=== PATIENT | male | born 1950 | race Caucasian/White ===

== ENCOUNTER 2021-04-30 14:01 | Inpatient (IN) | payer MEDICARE, OTHER ==
[~2021-04-30 14:01] MED LIST: Iopamidol-370 76% 500 ML 1 ML ONE
[2021-04-30] MEDS ORDERED: Albuterol Sulfate 1.25 MG/3 ML NEB ONE (14:28)
[2021-04-30 14:37] LABS: #Eosinphils 0.1 thou/uL (0.0-0.7); #Lymphocytes 0.9 thou/uL (1.20-3.40); #Monocytes 0.8 thou/uL (0.11-0.59); #Neutrophils 3.5 thou/uL (1.40-6.50); %Basophils 0.9 % (0.0-1.0); %Eosinophils 2.2 % (0.0-10.0); %Lymphocytes 17.4 % (21.0-51.0); %Monocytes 14.3 % (0.0-10.0); %Neutrophils 65.2 % (42.0-75.0); Hemoglobin 12.4 g/dL (14.0-18.0); Mean Corpuscular HGB CONC 34.2 g/dL (32.0-36.0); Mean Platelet Volume 7.5 fL (7.4-10.4); Platelet Count 202 thou/uL (130-400); RBC Distribution Width 12.3 % (11.5-14.5); Red Blood Cell (RBC) Count 3.53 mill/uL (4.70-6.10); White Blood Cell (WBC) Count 5.3 thou/uL (4.8-10.8)
[2021-04-30 14:48] LABS: INR-International Normal Ratio 1.1; PTT 30.8 sec (22.9-36.1); Prothrombin Time 13.9 sec (12.0-14.7)
[2021-04-30 14:58] LABS: ALT (SGPT) 207 U/L (8-55); AST (SGOT) 119 U/L (5-34); Albumin 3.8 g/dL (3.4-4.8); Alkaline Phosphatase 169 U/L (40-110); Anion Gap 15 mmol/L (10-20); BUN (Urea Nitrogen) 29 mg/dL (8.4-25.7); Bilirubin, Total 0.3 mg/dL (0.2-1.2); Calc. Creatinine Clearance 0 mL/min (70-130); Calcium 9.1 mg/dL (7.8-10.44); Carbon Dioxide 20 mmol/L (23-31); Chloride 106 mmol/L (98-107); Globulin 2.9 g/dL (2.4-3.5); Glucose 124 mg/dL (83-110); Potassium 4.6 mmol/L (3.5-5.1); Protein, Total 6.7 g/dL (5.8-8.1); Sodium 136 mmol/L (136-145)
[2021-04-30 16:37] LABS: SARS-CoV-2 NAA Rapid Test DETECTED (NotDetected)
[2021-04-30] MEDS ORDERED: methylPREDNISolone Sod Succ/PF 125 MG/2 ML VIAL ONE (16:39)
[2021-04-30 18:07] LABS: Bacteria/HPF None Seen HPF (None Seen); Bilirubin Negative (Negative); Blood, Urine Trace (Negative); Clarity Clear (Clear); Glucose, Urine (Dipstick) Normal (Negative); Ketone, Urine Negative (Negative); Leukocyte 25 Leu/uL (Negative); Nitrite Negative (Negative); Protein, Urine (Dipstick) 10 mg/dL (Neg-Trace); Specific Gravity, Urine 1.015 (1.002-1.036); Squamous Epithelial None Seen HPF (0-3); Urobilinogen Normal mg/dL (Less than 2)
[2021-04-30 18:39] LABS: Troponin I 0.409 ng/mL (< 0.028)
[2021-04-30] MEDS ORDERED: Acetaminophen 325 MG TAB PO PRN (19:16)
[2021-04-30] MEDS ORDERED: Senokot S 8.6-50 MG TAB PO PRN (19:16)
[2021-04-30] MEDS ORDERED: Calcium Carbonate 500 MG ChewTAB PO PRN (19:16)
[2021-04-30] MEDS ORDERED: Ipratropium/Albuterol Sulfate 4 GM AER IH PRN (19:35)
[2021-04-30] MEDS ORDERED: Enoxaparin Sodium 40 MG/0.4 ML SYRINGE SC SCH (20:00)
[2021-04-30] MEDS ORDERED: Enoxaparin Sodium 40 MG/0.4 ML SYRINGE ONE (20:32)
[2021-04-30] MEDS ORDERED: Aspirin 325 MG TAB PO SCH (21:00)
[2021-04-30 21:27] LABS: Critical Call Chem Troponin I RESULT DECREASING; Troponin I 0.323 ng/mL (< 0.028)
[2021-05-01] MEDS ORDERED: Ipratropium/Albuterol Sulfate 4 GM AER IH SCH (01:00)
[2021-05-01 01:47] LABS: Troponin I 0.194 ng/mL (< 0.028)
[2021-05-01 01:53] VITALS: BMI 30.2
[2021-05-01] MEDS ORDERED: Albuterol 200 PUFF (6.7GM INHALER) INH PRN (02:35)
[2021-05-01] MEDS ORDERED: Ipratropium Oral Inhaler INH PRN (02:35)
[2021-05-01] MEDS: Albuterol 200 PUFF (6.7GM INHALER) INH SCH ×4 (03:03→19:24)
[2021-05-01] MEDS: Ipratropium Oral Inhaler INH SCH ×4 (03:04→19:25)
[2021-05-01 06:01] LABS: ALT (SGPT) 171 U/L (8-55); AST (SGOT) 70 U/L (5-34); Albumin 3.6 g/dL (3.4-4.8); Alkaline Phosphatase 148 U/L (40-110); Anion Gap 15 mmol/L (10-20); BUN (Urea Nitrogen) 32 mg/dL (8.4-25.7); Bilirubin, Total 0.3 mg/dL (0.2-1.2); Calc. Creatinine Clearance 64 mL/min (70-130); Carbon Dioxide 19 mmol/L (23-31); Chloride 107 mmol/L (98-107); Globulin 2.8 g/dL (2.4-3.5); Glucose 172 mg/dL (83-110); Potassium 4.7 mmol/L (3.5-5.1); Protein, Total 6.4 g/dL (5.8-8.1); Sodium 136 mmol/L (136-145)
[2021-05-01] MEDS: Dexamethasone 4 MG TAB PO SCH (08:12)
[2021-05-01] MEDS: Enoxaparin Sodium 40 MG/0.4 ML SYRINGE SC SCH (08:13)
[2021-05-01] MEDS: Aspirin 325 mg Enteric Coated Tablet PO SCH (08:13)
[2021-05-02] MEDS: Albuterol 200 PUFF (6.7GM INHALER) INH SCH ×6 (00:17→20:42)
[2021-05-02] MEDS: Ipratropium Oral Inhaler INH SCH ×6 (00:17→20:42)
[2021-05-02] MEDS: Lisinopril/Hydrochlorothiazide 20/25 mg Tablet PO SCH (06:19)
[2021-05-02] MEDS: Aspirin 325 mg Enteric Coated Tablet PO SCH (08:34)
[2021-05-02] MEDS: Dexamethasone 4 MG TAB PO SCH (08:34)
[2021-05-02] MEDS: Enoxaparin Sodium 40 MG/0.4 ML SYRINGE SC SCH (08:34)
[2021-05-02] MEDS: Allopurinol 300 MG TAB PO SCH (08:34)
[2021-05-02] MEDS: guaiFENesin ER 600 MG TAB PO SCH ×2 (10:46→20:42)
[2021-05-02] MEDS: Atorvastatin Calcium 20 MG TAB PO SCH (20:42)
[2021-05-03] MEDS: Albuterol 200 PUFF (6.7GM INHALER) INH SCH ×6 (02:50→21:58)
[2021-05-03] MEDS: Ipratropium Oral Inhaler INH SCH ×6 (02:50→21:58)
[2021-05-03 07:18] LABS: Anion Gap 13 mmol/L (10-20); BUN (Urea Nitrogen) 38 mg/dL (8.4-25.7); Calc. Creatinine Clearance 83 mL/min (70-130); Calcium 9.2 mg/dL (7.8-10.44); Carbon Dioxide 23 mmol/L (23-31); Chloride 104 mmol/L (98-107); Glucose 100 mg/dL (83-110); Potassium 4.7 mmol/L (3.5-5.1); Sodium 135 mmol/L (136-145)
[2021-05-03] MEDS: Aspirin 325 mg Enteric Coated Tablet PO SCH (07:42)
[2021-05-03] MEDS: Allopurinol 300 MG TAB PO SCH (07:42)
[2021-05-03] MEDS: guaiFENesin ER 600 MG TAB PO SCH ×2 (07:42→21:57)
[2021-05-03] MEDS: Lisinopril/Hydrochlorothiazide 20/25 mg Tablet PO SCH (07:42)
[2021-05-03] MEDS: Dexamethasone 4 MG TAB PO SCH (07:43)
[2021-05-03] MEDS: Enoxaparin Sodium 40 MG/0.4 ML SYRINGE SC SCH (07:43)
[2021-05-03] MEDS: Famotidine 20 MG TAB PO SCH ×2 (10:40→21:57)
[2021-05-03] MEDS: Atorvastatin Calcium 20 MG TAB PO SCH (21:58)
[2021-05-04] MEDS: Albuterol 200 PUFF (6.7GM INHALER) INH SCH ×6 (02:45→20:21)
[2021-05-04] MEDS: Ipratropium Oral Inhaler INH SCH ×6 (02:45→20:21)
[2021-05-04 05:13] LABS: Anion Gap 13 mmol/L (10-20); BUN (Urea Nitrogen) 41 mg/dL (8.4-25.7); Calc. Creatinine Clearance 80 mL/min (70-130); Calcium 9.1 mg/dL (7.8-10.44); Carbon Dioxide 23 mmol/L (23-31); Chloride 102 mmol/L (98-107); Glucose 106 mg/dL (83-110); Potassium 4.3 mmol/L (3.5-5.1); Sodium 134 mmol/L (136-145)
[2021-05-04] MEDS: Famotidine 20 MG TAB PO SCH ×2 (09:34→20:22)
[2021-05-04] MEDS: Lisinopril/Hydrochlorothiazide 20/25 mg Tablet PO SCH (09:34)
[2021-05-04] MEDS: Dexamethasone 4 MG TAB PO SCH (09:34)
[2021-05-04] MEDS: Aspirin 325 mg Enteric Coated Tablet PO SCH (09:34)
[2021-05-04] MEDS: Enoxaparin Sodium 40 MG/0.4 ML SYRINGE SC SCH (09:35)
[2021-05-04] MEDS: Allopurinol 300 MG TAB PO SCH (09:35)
[2021-05-04] MEDS: guaiFENesin ER 600 MG TAB PO SCH ×2 (09:35→20:22)
[2021-05-04] MEDS: Atorvastatin Calcium 20 MG TAB PO SCH (20:22)
[2021-05-05] MEDS: Albuterol 200 PUFF (6.7GM INHALER) INH SCH ×4 (02:12→15:33)
[2021-05-05] MEDS: Ipratropium Oral Inhaler INH SCH ×4 (02:12→15:32)
[2021-05-05] MEDS: Dexamethasone 4 MG TAB PO SCH (08:39)
[2021-05-05] MEDS: Aspirin 325 mg Enteric Coated Tablet PO SCH (08:40)
[2021-05-05] MEDS: Famotidine 20 MG TAB PO SCH (08:40)
[2021-05-05] MEDS: Enoxaparin Sodium 40 MG/0.4 ML SYRINGE SC SCH (08:40)
[2021-05-05] MEDS: guaiFENesin ER 600 MG TAB PO SCH (08:40)
[2021-05-05] MEDS: Allopurinol 300 MG TAB PO SCH (08:40)
[2021-05-05] MEDS ORDERED: Lisinopril 20 MG TAB PO SCH (09:00)
[2021-05-05 12:28] VITALS: BP 113/67; TEMP 97.7
== END 2021-05-05 16:45 | disposition home or self-care (01) | DRG 871 ==
LOC: ERS 14:01 → ERHOLD 17:37 → 2SW 05-01 00:26 → OBSVTOIN 05-02 09:36
PROVIDERS: ADMIT Student in an Organized Health Care Education/Training Program; ATTEND Student in an Organized Health Care Education/Training Program
PROC: 8E0ZXY6 Isolation (ICD-10-PCS; principal; 2021-05-02)
DX: A41.89 Other specified sepsis (principal); U07.1 COVID-19; N17.9 Acute kidney failure, unspecified; I24.8 Other forms of acute ischemic heart disease; J90 Pleural effusion, not elsewhere classified; R65.20 Severe sepsis without septic shock; I10 Essential (primary) hypertension; E86.0 Dehydration; R94.31 Abnormal electrocardiogram [ECG] [EKG]; E78.5 Hyperlipidemia, unspecified; R74.01 Elevation of levels of liver transaminase levels; Z96.653 Presence of artificial knee joint, bilateral; Z79.899 Other long term (current) drug therapy; Z90.89 Acquired absence of other organs; Z98.42 Cataract extraction status, left eye; Z98.41 Cataract extraction status, right eye; Z87.891 Personal history of nicotine dependence
CPT/HCPCS: 0240U; 36415; 71045; 71275; 80048; 80053; 81003; 81015; 83605; 84484; 85025; 85610; 85730; 87040; 87086; 93005; 94760; 96372; 96374; G0378; J1650; J2930; J7620; J8540; Q9967

== ENCOUNTER 2021-06-06 13:57 | Inpatient (IN) | payer MEDICARE, OTHER ==
[2021-06-06] MEDS ORDERED: Vancomycin 1 GM/200 ML BAG ONE (15:03)
[2021-06-06] MEDS ORDERED: Cefepime 2 GM VIAL ONE (15:03)
[2021-06-06 15:26] LABS: ALT (SGPT) 118 U/L (8-55); AST (SGOT) 153 U/L (5-34); Albumin 2.9 g/dL (3.4-4.8); Alkaline Phosphatase 188 U/L (40-110); Anion Gap 21 mmol/L (10-20); BUN (Urea Nitrogen) 110 mg/dL (8.4-25.7); Bilirubin, Total 0.8 mg/dL (0.2-1.2); Calc. Creatinine Clearance 0 mL/min (70-130); Calcium 8.9 mg/dL (7.8-10.44); Carbon Dioxide 11 mmol/L (23-31); Chloride 104 mmol/L (98-107); Glucose 78 mg/dL (83-110); Magnesium 2.3 mg/dL (1.6-2.6); Potassium 5.3 mmol/L (3.5-5.1); Protein, Total 5.9 g/dL (5.8-8.1); Sodium 131 mmol/L (136-145)
[2021-06-06 15:27] LABS: Hemoglobin 12.1 g/dL (14.0-18.0); Mean Corpuscular HGB CONC 33.1 g/dL (32.0-36.0); Mean Corpuscular Hemoglobin 33.3 pg (27.0-31.0); Platelet Count 237 thou/uL (130-400); RBC Distribution Width 13.2 % (11.5-14.5); Red Blood Cell (RBC) Count 3.63 mill/uL (4.70-6.10); White Blood Cell (WBC) Count 24.1 thou/uL (4.8-10.8)
[2021-06-06] MEDS ORDERED: Norepinephrine 8 MG/0.9% NS 250 ML ONE (15:40)
[2021-06-06 15:41] LABS: INR-International Normal Ratio 1.9; PTT 29.2 sec (22.9-36.1); Prothrombin Time 21.7 sec (12.0-14.7)
[2021-06-06 15:44] LABS: Band 32 % (5-11); Burr Cells SLIGHT = 2-5 cells (100X) (0-1/hpf); Lymphocytes 7 % (21-51); MDiff Complete? YES; Macrocytosis SLIGHT = 6-15 cells (100X) (0-5/hpf); Metamyelocyte 3 % (0-0); Monocytes 2 % (0-10); Neutrophil 56 % (42-75); Platelet Morphology Comment Appears Adequate; Polychromasia SLIGHT = 2-3 cells (100X) (0-2/hpf); Vacuoles SLIGHT
[2021-06-06 15:57] LABS: Bilirubin Negative (Negative); Blood, Urine 2+ (Negative); Clarity Turbid (Clear); Glucose, Urine (Dipstick) Normal (Negative); Ketone, Urine Negative (Negative); Leukocyte 500 Leu/uL (Negative); Nitrite Negative (Negative); Protein, Urine (Dipstick) 50 mg/dL (Neg-Trace); Specific Gravity, Urine 1.023 (1.002-1.036); Squamous Epithelial 0-3 HPF (0-3); Urobilinogen Normal mg/dL (Less than 2)
[2021-06-06 16:06] LABS: Bacteria/HPF 2+ HPF (None Seen)
[2021-06-06 16:33] LABS: CKMB 154.1 ng/mL (0-6.6)
[2021-06-06] MEDS ORDERED: Phenylephrine 40 MG in Sodium Chloride 0.9% 250 ML 250 ML IVPB SCH (17:15)
[2021-06-06] MEDS ORDERED: Heparin 25,000 units/D5W 500 ML ONE (17:19)
[2021-06-06] MEDS ORDERED: Heparin 10,000 UNITS/ 10 ML VIAL ONE (17:19)
[2021-06-06 18:16] LABS: Lactic Acid 2.4 mmol/L (0.5-2.2)
[2021-06-06 18:19] LABS: SARS-CoV-2 NAA Rapid Test DETECTED (NotDetected)
[2021-06-06] MEDS ORDERED: Electrolyte Replacement Protocol 1 EACH IVPB ONE (18:58)
[2021-06-06] MEDS ORDERED: Phenylephrine 40 MG in Sodium Chloride 0.9% 250 ML 250 ML IVPB PRN (18:58)
[2021-06-06] MEDS ORDERED: Acetaminophen 325 MG TAB PO PRN (18:58)
[2021-06-06] MEDS ORDERED: Ondansetron ODT 4 MG TAB SL PRN (19:15)
[2021-06-06] MEDS ORDERED: Ondansetron PF 4 MG/2 ML Vial IVP PRN (19:15)
[2021-06-06] MEDS ORDERED: Hydrocortisone Sod Succ/PF 100 mg/2 ml Vial IVP SCH (19:15)
[2021-06-06] MEDS ORDERED: Lactated Ringer's 1,000 ML IV SCH (19:15)
[2021-06-06] MEDS ORDERED: Pharmacy to RENALLY ADJUST CEFEPIME IVPB PRN (19:40)
[2021-06-06 19:56] LABS: Critical Call Chem Troponin I RESULT DECREASING; Troponin I 13.131 ng/mL (< 0.028)
[2021-06-06] MEDS: Famotidine/PF 20 mg/2ml Vial SLOW IVP SCH (20:58)
[2021-06-06 22:28] LABS: O2 Tension (PaO2), arterial 108.2 mmHg (> 70.0); Potassium - ABG Lab 5.02 mmol/L (3.70-5.30); pH, Arterial 7.28 (7.35-7.45)
[2021-06-06 22:29] LABS: CO2 Tension 17.4 mmHg (35.0-45.0)
[2021-06-06 22:30] LABS: Puncture Site LRA
[2021-06-06] MEDS ORDERED: Sodium Bicarb 50 MEQ/50 ML VIAL IVP SCH (22:30)
[2021-06-06] MEDS ORDERED: Sodium Bicarb 50 MEQ/50 ML VIAL ONE (22:34)
[2021-06-06] MEDS ORDERED: Sodium Bicarbonate 150 MEQ in Dextrose 5% in Water 1,000 ML IV SCH (22:45)
[2021-06-06] MEDS: Phenylephrine 40 MG in Sodium Chloride 0.9% 250 ML 250 ML IVPB PRN (22:47)
[2021-06-06] MEDS ORDERED: Furosemide 40 MG/4 ML VIAL SLOW IVP SCH (23:30)
[2021-06-06] MEDS ORDERED: Meropenem 1 GM in Sodium Chloride 0.9% 100 ML IVPB SCH ×2 (23:45→23:59)
[2021-06-06] MEDS ORDERED: Heparin 25,000 units/D5W 500 ML IVPB SCH (23:45)
[2021-06-06] MEDS ORDERED: Insulin Regular 300 UNITS/3 ML VIAL SC PRN (23:52)
[2021-06-07 00:05] LABS: ALT (SGPT) 134 U/L (8-55); AST (SGOT) 144 U/L (5-34); Albumin 2.7 g/dL (3.4-4.8); Alkaline Phosphatase 200 U/L (40-110); Anion Gap 22 mmol/L (10-20); BUN (Urea Nitrogen) 111 mg/dL (8.4-25.7); Bilirubin, Total 0.9 mg/dL (0.2-1.2); Calc. Creatinine Clearance 0 mL/min (70-130); Calcium 8.4 mg/dL (7.8-10.44); Carbon Dioxide 11 mmol/L (23-31); Chloride 107 mmol/L (98-107); Glucose 111 mg/dL (83-110); Potassium 5.2 mmol/L (3.5-5.1); Protein, Total 5.7 g/dL (5.8-8.1); Sodium 135 mmol/L (136-145)
[2021-06-07 00:09] LABS: Critical Call Chem Troponin I RESULT DECREASING; Troponin I 12.181 ng/mL (< 0.028)
[2021-06-07 00:10] LABS: Band 39 % (5-11); Hemoglobin 13.2 g/dL (14.0-18.0); Hypochromia SLIGHT = 6-15 cells (100X) (0-5/hpf); MDiff Complete? YES; Macrocytosis SLIGHT = 6-15 cells (100X) (0-5/hpf); Mean Corpuscular Hemoglobin 32.7 pg (27.0-31.0); Mean Platelet Volume 7.5 fL (7.4-10.4); Monocytes 12 % (0-10); Neutrophil 48 % (42-75); Platelet Count 332 thou/uL (130-400); Platelet Morphology Comment Appears Adequate; RBC Distribution Width 13.5 % (11.5-14.5); Reactive Lymphocytes 1 % (0-10); Red Blood Cell (RBC) Count 4.05 mill/uL (4.70-6.10); White Blood Cell (WBC) Count 38.8 thou/uL (4.8-10.8)
[2021-06-07] MEDS: Hydrocortisone Sod Succ/PF 100 mg/2 ml Vial IVP SCH ×4 (00:29→18:27)
[2021-06-07] MEDS ORDERED: Dextrose 50% Abboject 50 ML SYRINGE IVP PRN (00:30)
[2021-06-07] MEDS ORDERED: Dextrose 5% in Water 1,000 ML IV PRN (00:30)
[2021-06-07] MEDS: Norepinephrine 8 MG/0.9% NS 250 ML IVPB PRN ×5 (00:48→18:28)
[2021-06-07] MEDS: Heparin 10,000 UNITS/ 10 ML VIAL SLOW IVP SCH ×2 (02:02→10:03)
[2021-06-07] MEDS: Phenylephrine 40 MG in Sodium Chloride 0.9% 250 ML 250 ML IVPB PRN ×3 (02:30→07:47)
[2021-06-07] MEDS ORDERED: Non-Formulary Item 1 EACH (Albuterol Sulfate [Proair Hfa] 8.5 GM Hfa.Aer.Ad) INH SCH (05:00)
[2021-06-07 05:28] LABS: Lactic Acid 2.5 mmol/L (0.5-2.2)
[2021-06-07 05:29] LABS: Band 58 % (5-11); Hypochromia SLIGHT = 6-15 cells (100X) (0-5/hpf); Lymphocytes 2 % (21-51); MDiff Complete? YES; Mean Corpuscular Hemoglobin 32.4 pg (27.0-31.0); Mean Platelet Volume 7.6 fL (7.4-10.4); Monocytes 2 % (0-10); Neutrophil 38 % (42-75); Platelet Count 345 thou/uL (130-400); Platelet Morphology Comment Appears Adequate; RBC Distribution Width 13.3 % (11.5-14.5); Red Blood Cell (RBC) Count 4.01 mill/uL (4.70-6.10); White Blood Cell (WBC) Count 39.9 thou/uL (4.8-10.8)
[2021-06-07 05:33] LABS: Anion Gap 26 mmol/L (10-20); BUN (Urea Nitrogen) 114 mg/dL (8.4-25.7); Bilirubin, Total 1.1 mg/dL (0.2-1.2); Calc. Creatinine Clearance 24 mL/min (70-130); Calcium 8.2 mg/dL (7.8-10.44); Chloride 107 mmol/L (98-107); Glucose 116 mg/dL (83-110); Potassium 5.4 mmol/L (3.5-5.1); Protein, Total 5.7 g/dL (5.8-8.1); Sodium 136 mmol/L (136-145)
[2021-06-07 05:34] LABS: ALT (SGPT) 456 U/L (8-55); AST (SGOT) 716 U/L (5-34); Albumin 2.8 g/dL (3.4-4.8); Alkaline Phosphatase 224 U/L (40-110); Globulin 2.9 g/dL (2.4-3.5)
[2021-06-07 05:38] LABS: Carbon Dioxide 8 mmol/L (23-31)
[2021-06-07] MEDS: Meropenem 500 MG in Sodium Chloride 0.9% 100 ML IVPB SCH ×2 (07:25→19:58)
[2021-06-07] MEDS: Albuterol 200 PUFF (6.7GM INHALER) INH SCH ×5 (09:00→22:28)
[2021-06-07] MEDS ORDERED: SODIUM CHLORIDE 0.9% IVPB SCH (09:00)
[2021-06-07] MEDS ORDERED: VANCOMYCIN HCL IVPB SCH (09:00)
[2021-06-07] MEDS: Ipratropium Oral Inhaler INH SCH ×5 (09:02→22:28)
[2021-06-07 09:12] LABS: Creatinine, Urine 206.68 mg/dL (63-166)
[2021-06-07] MEDS: Albumin 25% 25 GM/100 ML BOT IVPB SCH (10:03)
[2021-06-07] MEDS: Aspirin 325 MG TAB PO SCH (10:06)
[2021-06-07 10:08] LABS: ALT (SGPT) 817 U/L (8-55); AST (SGOT) 1499 U/L (5-34); Albumin 2.6 g/dL (3.4-4.8); Alkaline Phosphatase 238 U/L (40-110); Anion Gap 24 mmol/L (10-20); BUN (Urea Nitrogen) 114 mg/dL (8.4-25.7); Calc. Creatinine Clearance 23 mL/min (70-130); Calcium 8.1 mg/dL (7.8-10.44); Carbon Dioxide 10 mmol/L (23-31); Chloride 108 mmol/L (98-107); Globulin 3.5 g/dL (2.4-3.5); Glucose 131 mg/dL (83-110); Potassium 6.1 mmol/L (3.5-5.1); Protein, Total 6.1 g/dL (5.8-8.1); Sodium 136 mmol/L (136-145)
[2021-06-07 11:07] LABS: Actual Bicarbonate (HCO3a) 9.9 mEq/L (22-28); Analyzer IN Cardio OR; Base Excess (BEa) -14.6 mEq/L (-2.0 to +3.0); Calcium, Ionized (arterial) 1.06 mmol/L (1.12-1.30); Carboxyhemoglobin (COHb) 0.4 gm% (0.0-3.0); Hemoglobin (Hb) 13.5 g/dL (14.0-18.0); O2 Tension (PaO2), arterial 92.4 mmHg (> 70.0); Potassium - ABG Lab 5.08 mmol/L (3.70-5.30); pH, Arterial 7.29 (7.35-7.45)
[2021-06-07] MEDS ORDERED: VANCOMYCIN 1.25 GM/250 ML BAG 1.25 GM in Premix Bag 1 BAG IVPB SCH (11:30)
[2021-06-07] MEDS ORDERED: Heparin 10,000 UNITS/ 10 ML VIAL SLOW IVP SCH (15:00)
[2021-06-07] MEDS ORDERED: Cefepime 2 GM in Sodium Chloride 0.9% 100 ML IVPB SCH (15:00)
[2021-06-07] MEDS: Sodium Bicarbonate 150 MEQ in Dextrose 5% in Water 1,000 ML IV SCH ×2 (17:41→23:15)
[2021-06-07] MEDS: Famotidine/PF 20 mg/2ml Vial SLOW IVP SCH (19:58)
[2021-06-07 20:21] LABS: Anion Gap 21 mmol/L (10-20); BUN (Urea Nitrogen) 117 mg/dL (8.4-25.7); Calc. Creatinine Clearance 24 mL/min (70-130); Calcium 7.7 mg/dL (7.8-10.44); Carbon Dioxide 15 mmol/L (23-31); Chloride 105 mmol/L (98-107); Glucose 243 mg/dL (83-110); Potassium 4.8 mmol/L (3.5-5.1); Sodium 136 mmol/L (136-145)
[2021-06-08] MEDS: Norepinephrine 8 MG/0.9% NS 250 ML IVPB PRN ×3 (01:05→18:00)
[2021-06-08] MEDS: Hydrocortisone Sod Succ/PF 100 mg/2 ml Vial IVP SCH ×4 (01:09→18:01)
[2021-06-08] MEDS: Ipratropium Oral Inhaler INH SCH ×6 (02:50→22:57)
[2021-06-08] MEDS: Albuterol 200 PUFF (6.7GM INHALER) INH SCH ×6 (02:50→22:56)
[2021-06-08 05:10] LABS: Band 33 % (5-11); Hemoglobin 11.1 g/dL (14.0-18.0); Lymphocytes 7 % (21-51); MDiff Complete? YES; Mean Corpuscular HGB CONC 32.5 g/dL (32.0-36.0); Mean Corpuscular Hemoglobin 32.7 pg (27.0-31.0); Mean Platelet Volume 7.5 fL (7.4-10.4); Monocytes 2 % (0-10); Neutrophil 57 % (42-75); Platelet Count 216 thou/uL (130-400); Platelet Morphology Comment Appears Adequate; RBC Distribution Width 13.3 % (11.5-14.5); Reactive Lymphocytes 1 % (0-10); Red Blood Cell (RBC) Count 3.39 mill/uL (4.70-6.10); White Blood Cell (WBC) Count 29.9 thou/uL (4.8-10.8)
[2021-06-08 05:21] LABS: ALT (SGPT) 1077 U/L (8-55); AST (SGOT) 1177 U/L (5-34); Albumin 2.8 g/dL (3.4-4.8); Alkaline Phosphatase 175 U/L (40-110); Anion Gap 21 mmol/L (10-20); BUN (Urea Nitrogen) 118 mg/dL (8.4-25.7); Calc. Creatinine Clearance 25 mL/min (70-130); Calcium 7.4 mg/dL (7.8-10.44); Carbon Dioxide 17 mmol/L (23-31); Chloride 102 mmol/L (98-107); Globulin 2.5 g/dL (2.4-3.5); Glucose 262 mg/dL (83-110); Potassium 4.4 mmol/L (3.5-5.1); Protein, Total 5.3 g/dL (5.8-8.1); Sodium 136 mmol/L (136-145)
[2021-06-08 07:09] LABS: Base Excess (BEa) -5.6 mEq/L (-2.0 to +3.0); Calcium, Ionized (arterial) 0.97 mmol/L (1.12-1.30); Carboxyhemoglobin (COHb) 0.3 gm% (0.0-3.0); Hemoglobin (Hb) 11.7 g/dL (14.0-18.0); O2 Tension (PaO2), arterial 99.7 mmHg (> 70.0); Potassium - ABG Lab 4.08 mmol/L (3.70-5.30); pH, Arterial 7.45 (7.35-7.45)
[2021-06-08 07:16] LABS: ALV-art Gradient 18.655 mmHg (0-20); CO2 Tension 25.1 mmHg (35.0-45.0); Puncture Site Arterial Line
[2021-06-08] MEDS: Heparin 25,000 units/D5W 500 ML IV SCH (07:44)
[2021-06-08] MEDS: Sodium Bicarbonate 150 MEQ in Dextrose 5% in Water 1,000 ML IV SCH ×2 (09:27→21:04)
[2021-06-08] MEDS: Meropenem 500 MG in Sodium Chloride 0.9% 100 ML IVPB SCH ×2 (09:28→21:03)
[2021-06-08] MEDS ORDERED: Albumin 25% 100 ML ONE ×2 (09:34→10:02)
[2021-06-08] MEDS: Albumin 25% 25 GM/100 ML BOT IVPB SCH (09:36)
[2021-06-08] MEDS: Aspirin 325 MG TAB PO SCH ×2 (09:36→10:50)
[2021-06-08 13:34] LABS: Vancomycin, Random 15.8 ug/mL (See Comment)
[2021-06-08] MEDS ORDERED: VANCOMYCIN 1.25 GM/250 ML BAG 1.25 GM in Premix Bag 1 BAG IVPB SCH (13:45)
[2021-06-08] MEDS: Famotidine/PF 20 mg/2ml Vial SLOW IVP SCH (21:03)
[2021-06-09] MEDS: Hydrocortisone Sod Succ/PF 100 mg/2 ml Vial IVP SCH ×4 (00:48→20:12)
[2021-06-09] MEDS: Ipratropium Oral Inhaler INH SCH ×4 (00:50→15:00)
[2021-06-09] MEDS: Albuterol 200 PUFF (6.7GM INHALER) INH SCH ×6 (00:50→22:05)
[2021-06-09] MEDS: Heparin 25,000 units/D5W 500 ML IV SCH (00:58)
[2021-06-09] MEDS: Norepinephrine 8 MG/0.9% NS 250 ML IVPB PRN ×3 (02:30→16:12)
[2021-06-09] MEDS ORDERED: Amiodarone 150 MG, Admixture Fee 1 EACH in Dextrose 5% in Water 100 ML IVPB SCH (04:00)
[2021-06-09] MEDS: Amiodarone 450 MG, Admixture Fee 1 EACH in Dextrose 5% in Water 250 ML IVPB SCH ×2 (04:30→13:43)
[2021-06-09 08:22] LABS: Hemoglobin 10.6 g/dL (14.0-18.0); White Blood Cell (WBC) Count 34.8 thou/uL (4.8-10.8)
[2021-06-09 08:23] LABS: MDiff Complete? YES; Manual Diff?? YES; Mean Corpuscular Hemoglobin 33.1 pg (27.0-31.0); Mean Platelet Volume 8.4 fL (7.4-10.4); Platelet Count 213 thou/uL (130-400); RBC Distribution Width 13.5 % (11.5-14.5)
[2021-06-09 08:24] LABS: Band 34 % (5-11); Lymphocytes 9 % (21-51); Neutrophil 48 % (42-75); Reactive Lymphocytes 9 % (0-10)
[2021-06-09 08:25] LABS: Hypochromia SLIGHT = 6-15 cells (100X) (0-5/hpf); Macrocytosis SLIGHT = 6-15 cells (100X) (0-5/hpf)
[2021-06-09 08:26] LABS: Platelet Morphology Comment Appears Adequate
[2021-06-09] MEDS: Meropenem 500 MG in Sodium Chloride 0.9% 100 ML IVPB SCH ×2 (08:58→20:13)
[2021-06-09] MEDS: Aspirin 325 MG TAB PO SCH (10:32)
[2021-06-09 10:37] LABS: ALT (SGPT) 1296 U/L (8-55); AST (SGOT) 1476 U/L (5-34); Albumin 2.9 g/dL (3.4-4.8); Alkaline Phosphatase 237 U/L (40-110); Anion Gap 22 mmol/L (10-20); BUN (Urea Nitrogen) 119 mg/dL (8.4-25.7); Bilirubin, Total 1.4 mg/dL (0.2-1.2); Calc. Creatinine Clearance 33 mL/min (70-130); Calcium 7.3 mg/dL (7.8-10.44); Carbon Dioxide 22 mmol/L (23-31); Chloride 100 mmol/L (98-107); Globulin 2.4 g/dL (2.4-3.5); Glucose 249 mg/dL (83-110); Potassium 3.9 mmol/L (3.5-5.1); Protein, Total 5.3 g/dL (5.8-8.1); Sodium 140 mmol/L (136-145)
[2021-06-09 14:58] LABS: Vancomycin, Random 19.7 ug/mL (See Comment)
[2021-06-09] MEDS ORDERED: Vancomycin 1 GM in Premix Bag 1 BAG IVPB SCH (16:00)
[2021-06-09] MEDS ORDERED: Digoxin 0.5 MG/2 ML AMP SLOW IVP SCH (20:00)
[2021-06-09] MEDS: Famotidine/PF 20 mg/2ml Vial SLOW IVP SCH (20:13)
[2021-06-09] MEDS: Sodium Bicarbonate 150 MEQ in Dextrose 5% in Water 1,000 ML IV SCH (20:42)
[2021-06-09] MEDS: Albumin 25% 25 GM/100 ML BOT IVPB SCH (23:18)
[2021-06-10] MEDS: Norepinephrine 8 MG/0.9% NS 250 ML IVPB PRN (00:13)
[2021-06-10] MEDS: Hydrocortisone Sod Succ/PF 100 mg/2 ml Vial IVP SCH ×4 (00:49→20:10)
[2021-06-10] MEDS: Albuterol 200 PUFF (6.7GM INHALER) INH SCH ×6 (02:15→22:07)
[2021-06-10] MEDS: Ipratropium Oral Inhaler INH SCH ×7 (03:07→22:07)
[2021-06-10] MEDS: Amiodarone 450 MG, Admixture Fee 1 EACH in Dextrose 5% in Water 250 ML IVPB SCH ×2 (04:26→19:42)
[2021-06-10 04:58] LABS: ALT (SGPT) 1356 U/L (8-55); AST (SGOT) 1293 U/L (5-34); Albumin 3.2 g/dL (3.4-4.8); Alkaline Phosphatase 175 U/L (40-110); Anion Gap 18 mmol/L (10-20); BUN (Urea Nitrogen) 112 mg/dL (8.4-25.7); Calc. Creatinine Clearance 38 mL/min (70-130); Calcium 7.6 mg/dL (7.8-10.44); Carbon Dioxide 28 mmol/L (23-31); Chloride 100 mmol/L (98-107); Globulin 2.5 g/dL (2.4-3.5); Glucose 248 mg/dL (83-110); Potassium 3.6 mmol/L (3.5-5.1); Protein, Total 5.7 g/dL (5.8-8.1); Sodium 142 mmol/L (136-145)
[2021-06-10 05:06] LABS: Band 36 % (5-11); Hemoglobin 10.2 g/dL (14.0-18.0); Lymphocytes 5 % (21-51); MDiff Complete? YES; Mean Corpuscular HGB CONC 32.5 g/dL (32.0-36.0); Mean Corpuscular Hemoglobin 32.6 pg (27.0-31.0); Mean Platelet Volume 8.5 fL (7.4-10.4); Metamyelocyte 2 % (0-0); Monocytes 6 % (0-10); Neutrophil 51 % (42-75); Platelet Count 162 thou/uL (130-400); Platelet Morphology Comment Appears Adequate; RBC Distribution Width 13.4 % (11.5-14.5); Red Blood Cell (RBC) Count 3.12 mill/uL (4.70-6.10)
[2021-06-10] MEDS: Albumin 25% 25 GM/100 ML BOT IVPB SCH ×2 (06:25→14:15)
[2021-06-10] MEDS ORDERED: Meropenem 1 GM in Sodium Chloride 0.9% 100 ML IVPB SCH (08:00)
[2021-06-10] MEDS: Aspirin 325 MG TAB PO SCH (09:47)
[2021-06-10] MEDS: cefTRIAXone\\ROCEPHIN 2 GM in Sodium Chloride 0.9% 100 ML IVPB SCH (14:16)
[2021-06-10] MEDS: Lactated Ringer's 1,000 ML IV SCH (14:16)
[2021-06-10] MEDS: Famotidine/PF 20 mg/2ml Vial SLOW IVP SCH (20:10)
[2021-06-11] MEDS: Lactated Ringer's 1,000 ML IV SCH ×2 (00:50→14:36)
[2021-06-11] MEDS: Hydrocortisone Sod Succ/PF 100 mg/2 ml Vial IVP SCH ×5 (01:20→23:52)
[2021-06-11] MEDS: Ipratropium Oral Inhaler INH SCH ×7 (02:28→23:13)
[2021-06-11] MEDS: Albuterol 200 PUFF (6.7GM INHALER) INH SCH ×6 (02:28→23:13)
[2021-06-11 05:37] LABS: Phosphorus 4.3 mg/dL (2.3-4.7)
[2021-06-11 05:39] LABS: Anion Gap 16 mmol/L (10-20); BUN (Urea Nitrogen) 99 mg/dL (8.4-25.7); CK (CPK) 79 U/L (30-200); Calc. Creatinine Clearance 46 mL/min (70-130); Calcium 7.9 mg/dL (7.8-10.44); Carbon Dioxide 29 mmol/L (23-31); Chloride 102 mmol/L (98-107); Glucose 149 mg/dL (83-110); Magnesium 2.1 mg/dL (1.6-2.6); Potassium 3.2 mmol/L (3.5-5.1); Sodium 144 mmol/L (136-145)
[2021-06-11 06:59] LABS: Hemoglobin 9.3 g/dL (14.0-18.0); Mean Corpuscular HGB CONC 31.3 g/dL (32.0-36.0); Mean Corpuscular Hemoglobin 32.5 pg (27.0-31.0); Mean Platelet Volume 8.7 fL (7.4-10.4); Platelet Count 121 thou/uL (130-400); RBC Distribution Width 13.4 % (11.5-14.5); Red Blood Cell (RBC) Count 2.85 mill/uL (4.70-6.10); White Blood Cell (WBC) Count 23.8 thou/uL (4.8-10.8)
[2021-06-11 08:12] LABS: Band 18 % (5-11); Lymphocytes 5 % (21-51); MDiff Complete? YES; Metamyelocyte 1 % (0-0); Monocytes 5 % (0-10); Neutrophil 71 % (42-75); Nucleated RBC 1 % (0); Platelet Morphology Comment Appears Decreased; Polychromasia MODERATE = 3-4 cells (100X) (0-2/hpf)
[2021-06-11] MEDS ORDERED: Potassium Chloride 40 MEQ in Premix Bag 1 BAG IVPB SCH (10:30)
[2021-06-11] MEDS: cefTRIAXone\\ROCEPHIN 2 GM in Sodium Chloride 0.9% 100 ML IVPB SCH (14:11)
[2021-06-11] MEDS: Aspirin 325 MG TAB PO SCH (15:51)
[2021-06-11] MEDS: Famotidine/PF 20 mg/2ml Vial SLOW IVP SCH (20:30)
[2021-06-12] MEDS: Albuterol 200 PUFF (6.7GM INHALER) INH SCH ×4 (03:25→14:33)
[2021-06-12] MEDS: Ipratropium Oral Inhaler INH SCH ×6 (03:26→23:26)
[2021-06-12] MEDS: Amiodarone 450 MG, Admixture Fee 1 EACH in Dextrose 5% in Water 250 ML IVPB SCH ×2 (06:46→23:02)
[2021-06-12 06:54] LABS: Hemoglobin 10.9 g/dL (14.0-18.0); Mean Corpuscular HGB CONC 31.9 g/dL (32.0-36.0); Mean Corpuscular Hemoglobin 33.4 pg (27.0-31.0); Mean Platelet Volume 9.3 fL (7.4-10.4); Platelet Count 122 thou/uL (130-400); RBC Distribution Width 14.2 % (11.5-14.5); Red Blood Cell (RBC) Count 3.27 mill/uL (4.70-6.10); White Blood Cell (WBC) Count 24.5 thou/uL (4.8-10.8)
[2021-06-12 07:06] LABS: Anion Gap 13 mmol/L (10-20); BUN (Urea Nitrogen) 90 mg/dL (8.4-25.7); Calc. Creatinine Clearance 52 mL/min (70-130); Calcium 8.4 mg/dL (7.8-10.44); Carbon Dioxide 34 mmol/L (23-31); Chloride 105 mmol/L (98-107); Glucose 184 mg/dL (83-110); Potassium 3.6 mmol/L (3.5-5.1); Sodium 148 mmol/L (136-145)
[2021-06-12 07:08] LABS: ALT (SGPT) 684 U/L (8-55); AST (SGOT) 306 U/L (5-34); Alkaline Phosphatase 181 U/L (40-110); Bilirubin, Direct 0.9 mg/dL (0.1-0.3); Bilirubin, Total 1.3 mg/dL (0.2-1.2); Protein, Total 5.9 g/dL (5.8-8.1)
[2021-06-12 07:31] LABS: Band 20 % (5-11); Lymphocytes 1 % (21-51); MDiff Complete? YES; Macrocytosis SLIGHT = 6-15 cells (100X) (0-5/hpf); Monocytes 2 % (0-10); Neutrophil 77 % (42-75); Nucleated RBC 5 % (0); Ovalocytes SLIGHT = 2-5 cells (100X) (0-1/hpf); Platelet Morphology Comment Appears Decreased; Polychromasia MODERATE = 3-4 cells (100X) (0-2/hpf)
[2021-06-12] MEDS: D5 1/4 NS 500 ML IV SCH ×2 (08:42→15:05)
[2021-06-12] MEDS ORDERED: Digoxin 0.5 MG/2 ML AMP SLOW IVP SCH (08:45)
[2021-06-12] MEDS: Hydrocortisone Sod Succ/PF 100 mg/2 ml Vial IVP SCH ×3 (08:46→23:02)
[2021-06-12] MEDS: Aspirin 325 MG TAB PO SCH (08:50)
[2021-06-12] MEDS ORDERED: Hydrocortisone Sod Succ/PF 100 mg/2 ml Vial IVP SCH (10:15)
[2021-06-12] MEDS ORDERED: Fentanyl 100 MCG/2 ML VIAL SLOW IVP PRN (10:27)
[2021-06-12] MEDS: cefTRIAXone\\ROCEPHIN 2 GM in Sodium Chloride 0.9% 100 ML IVPB SCH (11:46)
[2021-06-12] MEDS ORDERED: Midazolam HCl 2 mg/2 ml Vial ONE (14:05)
[2021-06-12] MEDS ORDERED: Propofol 1,000 MG/100 ML VIAL IV ONE (14:06)
[2021-06-12] MEDS ORDERED: Midazolam HCl 2 mg/2 ml Vial IVP SCH (14:30)
[2021-06-12] MEDS ORDERED: Morphine 4 MG/ML VIAL SLOW IVP PRN (14:30)
[2021-06-12] MEDS ORDERED: Fentanyl BOLUS 250 ML IVPB PRN (14:30)
[2021-06-12] MEDS ORDERED: Lorazepam 2 MG/ML VIAL SLOW IVP PRN (14:30)
[2021-06-12] MEDS ORDERED: DISCONTINUE PREVIOUS NARCOTIC PAIN MEDICATIONS AND BENZODIAZEPINES FS SCH (14:30)
[2021-06-12] MEDS ORDERED: Propofol BOLUS 1,000 MG/100 ML VIAL IV PRN (14:30)
[2021-06-12] MEDS ORDERED: fentaNYL Citrate/PF 2,000 MCG in Sodium Chloride 0.9% 60 ML IV SCH (14:45)
[2021-06-12] MEDS ORDERED: fentaNYL Citrate-0.9 % NaCl/PF 100 ML IVPB SCH (15:00)
[2021-06-12] MEDS ORDERED: Spironolactone 25 MG TAB PER TUBE SCH (15:15)
[2021-06-12] MEDS: Lactated Ringer's 1,000 ML IV SCH (19:39)
[2021-06-12] MEDS: Norepinephrine 8 MG/0.9% NS 250 ML IVPB PRN (20:22)
[2021-06-12] MEDS: Famotidine/PF 20 mg/2ml Vial SLOW IVP SCH (20:30)
[2021-06-13] MEDS: Ipratropium Oral Inhaler INH SCH ×6 (03:36→22:45)
[2021-06-13 04:43] LABS: Anion Gap 7 mmol/L (10-20); BUN (Urea Nitrogen) 86 mg/dL (8.4-25.7); Calc. Creatinine Clearance 55 mL/min (70-130); Calcium 7.8 mg/dL (7.8-10.44); Carbon Dioxide 37 mmol/L (23-31); Chloride 108 mmol/L (98-107); Glucose 210 mg/dL (83-110); Potassium 3.4 mmol/L (3.5-5.1); Sodium 149 mmol/L (136-145)
[2021-06-13] MEDS: D5 1/4 NS 500 ML IV SCH ×2 (05:11→09:43)
[2021-06-13 05:28] LABS: Hemoglobin 10.3 g/dL (14.0-18.0); Mean Corpuscular HGB CONC 31.7 g/dL (32.0-36.0); Mean Corpuscular Hemoglobin 33.4 pg (27.0-31.0); Mean Platelet Volume 9.7 fL (7.4-10.4); Platelet Count 107 thou/uL (130-400); RBC Distribution Width 14.7 % (11.5-14.5); Red Blood Cell (RBC) Count 3.08 mill/uL (4.70-6.10); White Blood Cell (WBC) Count 17.6 thou/uL (4.8-10.8)
[2021-06-13] MEDS: Hydrocortisone Sod Succ/PF 100 mg/2 ml Vial IVP SCH ×3 (06:21→23:24)
[2021-06-13 06:39] LABS: Band 8 % (5-11); Lymphocytes 13 % (21-51); MDiff Complete? YES; Monocytes 9 % (0-10); Neutrophil 70 % (42-75); Ovalocytes SLIGHT = 2-5 cells (100X) (0-1/hpf); Platelet Morphology Comment Appears Decreased
[2021-06-13] MEDS ORDERED: [UNRECOGNIZED DRUG - REMARK] IVPB SCH (09:15)
[2021-06-13] MEDS: Aspirin 325 MG TAB PO SCH (09:43)
[2021-06-13] MEDS: cefTRIAXone\\ROCEPHIN 2 GM in Sodium Chloride 0.9% 100 ML IVPB SCH (15:01)
[2021-06-13] MEDS: Potassium Chloride 20 MEQ in Premix Bag 1 BAG IVPB SCH ×2 (17:42→19:11)
[2021-06-13] MEDS ORDERED: Potassium Chloride 40 MEQ in Premix Bag 1 BAG IVPB SCH (19:00)
[2021-06-13] MEDS: Propofol 1,000 MG/100 ML VIAL IV PRN (21:13)
[2021-06-13] MEDS: Famotidine/PF 20 mg/2ml Vial SLOW IVP SCH (21:13)
[2021-06-14] MEDS: Ipratropium Oral Inhaler INH SCH ×2 (02:30→19:48)
[2021-06-14] MEDS: fentaNYL Citrate-0.9 % NaCl/PF 100 ML IVPB SCH (05:14)
[2021-06-14 05:15] LABS: Band 8 % (5-11); Hemoglobin 9.8 g/dL (14.0-18.0); Lymphocytes 3 % (21-51); MDiff Complete? YES; Macrocytosis SLIGHT = 6-15 cells (100X) (0-5/hpf); Mean Corpuscular HGB CONC 30.8 g/dL (32.0-36.0); Mean Corpuscular Hemoglobin 33.2 pg (27.0-31.0); Mean Platelet Volume 9.8 fL (7.4-10.4); Monocytes 1 % (0-10); Myelocyte 1 % (0-0); Neutrophil 87 % (42-75); Platelet Count 109 thou/uL (130-400); Platelet Morphology Comment Appears Decreased; RBC Distribution Width 15.1 % (11.5-14.5); Red Blood Cell (RBC) Count 2.96 mill/uL (4.70-6.10); White Blood Cell (WBC) Count 13.9 thou/uL (4.8-10.8)
[2021-06-14] MEDS: D5 1/4 NS 500 ML IV SCH (05:46)
[2021-06-14 05:48] LABS: Chloride 111 mmol/L (98-107)
[2021-06-14 05:49] LABS: Calcium 7.7 mg/dL (7.8-10.44); Glucose 209 mg/dL (83-110); Potassium 3.6 mmol/L (3.5-5.1); Sodium 153 mmol/L (136-145)
[2021-06-14 05:51] LABS: Anion Gap 33 mmol/L (10-20); Carbon Dioxide 13 mmol/L (23-31)
[2021-06-14 05:53] LABS: Calc. Creatinine Clearance 62 mL/min (70-130)
[2021-06-14 05:54] LABS: BUN (Urea Nitrogen) 79 mg/dL (8.4-25.7)
[2021-06-14] MEDS: Hydrocortisone Sod Succ/PF 100 mg/2 ml Vial IVP SCH ×3 (06:32→20:41)
[2021-06-14 07:36] LABS: Actual Bicarbonate (HCO3a) 31.5 mEq/L (22-28); Base Excess (BEa) 8.3 mEq/L (-2.0 to +3.0); CO2 Tension 38.7 mmHg (35.0-45.0); O2 Tension (PaO2), arterial 79.6 mmHg (> 70.0); Potassium - ABG Lab 3.32 mmol/L (3.70-5.30); pH, Arterial 7.53 (7.35-7.45)
[2021-06-14 07:37] LABS: Puncture Site LRA
[2021-06-14 07:38] LABS: ALV-art Gradient 157.225 mmHg (0-20)
[2021-06-14 08:37] LABS: Chloride 111 mmol/L (98-107); Potassium 3.9 mmol/L (3.5-5.1); Sodium 150 mmol/L (136-145)
[2021-06-14 08:38] LABS: Calcium 7.7 mg/dL (7.8-10.44); Glucose 209 mg/dL (83-110)
[2021-06-14 08:40] LABS: Anion Gap 15 mmol/L (10-20); Carbon Dioxide 28 mmol/L (23-31)
[2021-06-14 08:42] LABS: BUN (Urea Nitrogen) 80 mg/dL (8.4-25.7); Calc. Creatinine Clearance 62 mL/min (70-130)
[2021-06-14] MEDS: Aspirin 325 MG TAB PO SCH (12:09)
[2021-06-14] MEDS: Enoxaparin Sodium 40 MG/0.4 ML SYRINGE SC SCH (12:10)
[2021-06-14] MEDS: Propofol 1,000 MG/100 ML VIAL IV PRN ×2 (12:19→20:41)
[2021-06-14] MEDS: cefTRIAXone\\ROCEPHIN 2 GM in Sodium Chloride 0.9% 100 ML IVPB SCH (12:37)
[2021-06-14] MEDS ORDERED: Furosemide 100 MG/10 ML VIAL IVPB SCH (16:00)
[2021-06-14] MEDS: Famotidine/PF 20 mg/2ml Vial SLOW IVP SCH (20:42)
[2021-06-15] MEDS: fentaNYL Citrate-0.9 % NaCl/PF 100 ML IVPB SCH (02:32)
[2021-06-15 05:22] LABS: Band 5 % (5-11); Hemoglobin 10.7 g/dL (14.0-18.0); Lymphocytes 3 % (21-51); MDiff Complete? YES; Mean Corpuscular HGB CONC 31.3 g/dL (32.0-36.0); Mean Corpuscular Hemoglobin 33.5 pg (27.0-31.0); Mean Platelet Volume 9.7 fL (7.4-10.4); Monocytes 1 % (0-10); Neutrophil 91 % (42-75); Platelet Count 122 thou/uL (130-400); Platelet Morphology Comment Appears Decreased; RBC Distribution Width 15.1 % (11.5-14.5); RBC Morphology Normal; Red Blood Cell (RBC) Count 3.18 mill/uL (4.70-6.10); White Blood Cell (WBC) Count 14.6 thou/uL (4.8-10.8)
[2021-06-15 05:24] LABS: Anion Gap 10 mmol/L (10-20); BUN (Urea Nitrogen) 73 mg/dL (8.4-25.7); Calc. Creatinine Clearance 68 mL/min (70-130); Calcium 7.9 mg/dL (7.8-10.44); Carbon Dioxide 37 mmol/L (23-31); Chloride 111 mmol/L (98-107); Glucose 208 mg/dL (83-110); Sodium 155 mmol/L (136-145)
[2021-06-15 06:49] LABS: Actual Bicarbonate (HCO3a) 29.5 mEq/L (22-28); Base Excess (BEa) 5.6 mEq/L (-2.0 to +3.0); Calcium, Ionized (arterial) 1.13 mmol/L (1.12-1.30); Potassium - ABG Lab 3.18 mmol/L (3.70-5.30); pH, Arterial 7.49 (7.35-7.45)
[2021-06-15 06:59] LABS: Puncture Site LRA
[2021-06-15] MEDS ORDERED: Potassium Chloride 40 MEQ in Premix Bag 1 BAG IVPB SCH (07:00)
[2021-06-15 07:49] LABS: Albumin 2.3 g/dL (3.4-4.8); Magnesium 2.1 mg/dL (1.6-2.6); Phosphorus 3.9 mg/dL (2.3-4.7)
[2021-06-15] MEDS: Aspirin 325 MG TAB PO SCH (09:59)
[2021-06-15] MEDS: Enoxaparin Sodium 40 MG/0.4 ML SYRINGE SC SCH (09:59)
[2021-06-15] MEDS: Hydrocortisone Sod Succ/PF 100 mg/2 ml Vial IVP SCH ×2 (09:59→20:22)
[2021-06-15] MEDS: D5 1/4 NS 500 ML IV SCH (10:04)
[2021-06-15 10:12] LABS: ALT (SGPT) 239 U/L (8-55); AST (SGOT) 72 U/L (5-34); Albumin 2.2 g/dL (3.4-4.8); Alkaline Phosphatase 136 U/L (40-110); Bilirubin, Direct 0.5 mg/dL (0.1-0.3); Bilirubin, Total 0.7 mg/dL (0.2-1.2); Protein, Total 4.6 g/dL (5.8-8.1)
[2021-06-15 10:31] LABS: HIV (1/2) Antibody/Antigen Non-Reactive (NonReactive); HIV 1/2 INDEX 0.16 S/CO (<1.00)
[2021-06-15] MEDS ORDERED: Potassium Bicarbonate/Cit Ac 20 MEQ TAB PO SCH (11:15)
[2021-06-15] MEDS ORDERED: Spironolactone 25 MG TAB PO SCH (11:45)
[2021-06-15] MEDS ORDERED: Albumin 25% 25 GM/100 ML BOT IVPB SCH (12:00)
[2021-06-15 13:38] LABS: Syphilis Antibody Nonreactive (Nonreactive); Syphilis Antibody Index 0.05 S/CO (<1.00 Non-Reactive)
[2021-06-15] MEDS ORDERED: Metolazone 2.5 MG TAB PO SCH (14:00)
[2021-06-15] MEDS: cefTRIAXone\\ROCEPHIN 2 GM in Sodium Chloride 0.9% 100 ML IVPB SCH (14:02)
[2021-06-15] MEDS: Propofol 1,000 MG/100 ML VIAL IV PRN (15:57)
[2021-06-15] MEDS ORDERED: FENTANYL CITRATE IV SCH (19:00)
[2021-06-15] MEDS ORDERED: SODIUM CHLORIDE IV SCH (19:00)
[2021-06-15] MEDS ORDERED: ADMIXTURE FEE IV SCH (19:00)
[2021-06-15] MEDS: FENTANYL CITRATE IV SCH (20:23)
[2021-06-15] MEDS: SODIUM CHLORIDE IV SCH (20:23)
[2021-06-15] MEDS: ADMIXTURE FEE IV SCH (20:23)
[2021-06-15] MEDS: Albumin 25% 25 GM/100 ML BOT IVPB SCH (20:23)
[2021-06-15] MEDS: Famotidine/PF 20 mg/2ml Vial SLOW IVP SCH (20:25)
[2021-06-16] MEDS: Albumin 25% 25 GM/100 ML BOT IVPB SCH ×2 (02:12→08:13)
[2021-06-16] MEDS: Propofol 1,000 MG/100 ML VIAL IV PRN ×3 (03:12→18:38)
[2021-06-16 04:16] LABS: Hemoglobin 9.2 g/dL (14.0-18.0); Mean Corpuscular HGB CONC 31.2 g/dL (32.0-36.0); Mean Corpuscular Hemoglobin 33.3 pg (27.0-31.0); Platelet Count 119 thou/uL (130-400); RBC Distribution Width 14.9 % (11.5-14.5); Red Blood Cell (RBC) Count 2.74 mill/uL (4.70-6.10); White Blood Cell (WBC) Count 9.7 thou/uL (4.8-10.8)
[2021-06-16 04:29] LABS: Anion Gap 13 mmol/L (10-20); BUN (Urea Nitrogen) 66 mg/dL (8.4-25.7); Calc. Creatinine Clearance 75 mL/min (70-130); Calcium 8.2 mg/dL (7.8-10.44); Carbon Dioxide 34 mmol/L (23-31); Chloride 113 mmol/L (98-107); Glucose 161 mg/dL (83-110); Magnesium 2.1 mg/dL (1.6-2.6); Potassium 3.5 mmol/L (3.5-5.1); Sodium 156 mmol/L (136-145)
[2021-06-16 05:39] LABS: Band 6 % (5-11); Lymphocytes 8 % (21-51); MDiff Complete? YES; Macrocytosis SLIGHT = 6-15 cells (100X) (0-5/hpf); Monocytes 1 % (0-10); Neutrophil 85 % (42-75); Platelet Morphology Comment Appears Decreased
[2021-06-16 07:00] LABS: Actual Bicarbonate (HCO3a) 31.9 mEq/L (22-28); Base Excess (BEa) 8.4 mEq/L (-2.0 to +3.0); CO2 Tension 39.7 mmHg (35.0-45.0); Calcium, Ionized (arterial) 1.12 mmol/L (1.12-1.30); Carboxyhemoglobin (COHb) 0.3 gm% (0.0-3.0); Hemoglobin (Hb) 9.6 g/dL (14.0-18.0); O2 Tension (PaO2), arterial 133.6 mmHg (> 70.0); Potassium - ABG Lab 3.54 mmol/L (3.70-5.30); pH, Arterial 7.52 (7.35-7.45)
[2021-06-16 07:01] LABS: Puncture Site RBA
[2021-06-16 07:02] LABS: ALV-art Gradient 101.975 mmHg (0-20)
[2021-06-16] MEDS: D5 1/4 NS 500 ML IV SCH (07:59)
[2021-06-16] MEDS ORDERED: Furosemide 40 MG/4 ML VIAL SLOW IVP SCH (09:45)
[2021-06-16] MEDS: Enoxaparin Sodium 40 MG/0.4 ML SYRINGE SC SCH (09:59)
[2021-06-16] MEDS: Hydrocortisone Sod Succ/PF 100 mg/2 ml Vial IVP SCH ×2 (09:59→20:20)
[2021-06-16] MEDS: Famotidine/PF 20 mg/2ml Vial SLOW IVP SCH ×2 (09:59→20:20)
[2021-06-16] MEDS: Aspirin 325 MG TAB PO SCH (10:07)
[2021-06-16] MEDS: cefTRIAXone\\ROCEPHIN 2 GM in Sodium Chloride 0.9% 100 ML IVPB SCH (12:36)
[2021-06-16 13:18] VITALS: BMI 32.3
[2021-06-16 14:32] VITALS: BP 107/67
[2021-06-16 15:39] LABS: Potassium 3.6 mmol/L (3.5-5.1)
[2021-06-16] MEDS: ADMIXTURE FEE IV SCH (19:00)
[2021-06-16] MEDS: FENTANYL CITRATE IV SCH (19:00)
[2021-06-16] MEDS: SODIUM CHLORIDE IV SCH (19:00)
[2021-06-16] MEDS ORDERED: Pancrelipase DR 12,000 1 CAP FS PRN (19:15)
[2021-06-16] MEDS ORDERED: Sodium Bicarbonate Tab 325 MG TAB PER TUBE PRN (19:15)
[2021-06-17] MEDS: Propofol 1,000 MG/100 ML VIAL IV PRN ×2 (02:29→13:33)
[2021-06-17 04:18] LABS: BUN (Urea Nitrogen) 76 mg/dL (8.4-25.7); Calc. Creatinine Clearance 77 mL/min (70-130); Calcium 8.1 mg/dL (7.8-10.44); Glucose 158 mg/dL (83-110); Magnesium 2.1 mg/dL (1.6-2.6)
[2021-06-17 04:28] LABS: Anion Gap 9 mmol/L (10-20); Carbon Dioxide 37 mmol/L (23-31); Chloride 113 mmol/L (98-107); Potassium 3.3 mmol/L (3.5-5.1); Sodium 156 mmol/L (136-145)
[2021-06-17 04:32] LABS: Band 9 % (5-11); Eosinophils 2 % (0-10); Hemoglobin 8.2 g/dL (14.0-18.0); Lymphocytes 15 % (21-51); MDiff Complete? YES; Mean Corpuscular HGB CONC 31.4 g/dL (32.0-36.0); Mean Corpuscular Hemoglobin 33.5 pg (27.0-31.0); Mean Platelet Volume 9.1 fL (7.4-10.4); Monocytes 1 % (0-10); Neutrophil 73 % (42-75); Platelet Count 128 thou/uL (130-400); RBC Distribution Width 14.9 % (11.5-14.5); Red Blood Cell (RBC) Count 2.45 mill/uL (4.70-6.10); White Blood Cell (WBC) Count 8.9 thou/uL (4.8-10.8)
[2021-06-17 07:15] LABS: Actual Bicarbonate (HCO3a) 36.2 mEq/L (22-28); CO2 Tension 46.2 mmHg (35.0-45.0); Calcium, Ionized (arterial) 1.11 mmol/L (1.12-1.30); Carboxyhemoglobin (COHb) 0.4 gm% (0.0-3.0); Hemoglobin (Hb) 8.6 g/dL (14.0-18.0); O2 Tension (PaO2), arterial 109.8 mmHg (> 70.0); Potassium - ABG Lab 3.27 mmol/L (3.70-5.30); pH, Arterial 7.51 (7.35-7.45)
[2021-06-17] MEDS ORDERED: Potassium Chloride 20 MEQ TAB PO SCH (08:00)
[2021-06-17 08:15] LABS: Puncture Site RBA
[2021-06-17] MEDS: Hydrocortisone Sod Succ/PF 100 mg/2 ml Vial IVP SCH ×2 (09:49→20:25)
[2021-06-17] MEDS: Famotidine/PF 20 mg/2ml Vial SLOW IVP SCH (09:50)
[2021-06-17] MEDS: Enoxaparin Sodium 40 MG/0.4 ML SYRINGE SC SCH (09:50)
[2021-06-17] MEDS: Aspirin 325 MG TAB PO SCH (09:52)
[2021-06-17] MEDS ORDERED: Metolazone 2.5 MG TAB PER TUBE SCH (10:00)
[2021-06-17] MEDS: Potassium Bicarbonate/Cit Ac 20 MEQ TAB PO SCH ×2 (10:46→17:43)
[2021-06-17] MEDS ORDERED: Spironolactone 100 MG TAB PO SCH (11:15)
[2021-06-17] MEDS ORDERED: Dexmedetomidine In 0.9 % NaCl 100 ML IVPB SCH (12:00)
[2021-06-17] MEDS ORDERED: cefTRIAXone\\ROCEPHIN 2 GM in Sodium Chloride 0.9% 100 ML IVPB SCH (12:00)
[2021-06-17] MEDS ORDERED: acetaZOLAMIDE Sodium 500 mg Vial IVP SCH (12:15)
[2021-06-17] MEDS: ADMIXTURE FEE IV SCH (13:21)
[2021-06-17] MEDS: SODIUM CHLORIDE IV SCH (13:21)
[2021-06-17] MEDS: FENTANYL CITRATE IV SCH (13:21)
[2021-06-17] MEDS: acetaZOLAMIDE Sodium 500 mg Vial IVP SCH (13:35)
[2021-06-17] MEDS: Sterile Water 10 ML VIAL IVP SCH (13:35)
[2021-06-17] MEDS: Famotidine 20 MG TAB PER TUBE SCH (20:25)
[2021-06-17] MEDS ORDERED: Norepinephrine 8 MG/0.9% NS 250 ML ONE (20:42)
[2021-06-17] MEDS: Norepinephrine 8 MG/0.9% NS 250 ML IVPB SCH (20:43)
[2021-06-17] MEDS ORDERED: Piperacillin/Tazobactam 3.375 GM in Sodium Chloride 0.9% 100 ML IVPB SCH (21:00)
[2021-06-17 21:30] LABS: Lactic Acid 1.1 mmol/L (0.5-2.2)
[2021-06-17] MEDS ORDERED: VANCOMYCIN 2 GRAM/400 ML BAG 2 GM in Premix Bag 1 BAG IVPB SCH (22:00)
[2021-06-18] MEDS: Sterile Water 10 ML VIAL IVP SCH (00:23)
[2021-06-18] MEDS: acetaZOLAMIDE Sodium 500 mg Vial IVP SCH (00:23)
[2021-06-18] MEDS: Piperacillin/Tazobactam 3.375 GM in Sodium Chloride 0.9% 100 ML IVPB SCH ×3 (02:42→17:00)
[2021-06-18 04:49] LABS: Anion Gap 10 mmol/L (10-20); BUN (Urea Nitrogen) 79 mg/dL (8.4-25.7); Calc. Creatinine Clearance 78 mL/min (70-130); Calcium 7.9 mg/dL (7.8-10.44); Carbon Dioxide 34 mmol/L (23-31); Chloride 114 mmol/L (98-107); Glucose 172 mg/dL (83-110); Potassium 3.9 mmol/L (3.5-5.1); Sodium 154 mmol/L (136-145)
[2021-06-18 05:08] LABS: Band 3 % (5-11); Eosinophils 1 % (0-10); Hemoglobin 7.4 g/dL (14.0-18.0); Hypochromia SLIGHT = 6-15 cells (100X) (0-5/hpf); Lymphocytes 11 % (21-51); MDiff Complete? YES; Macrocytosis SLIGHT = 6-15 cells (100X) (0-5/hpf); Mean Corpuscular HGB CONC 30.6 g/dL (32.0-36.0); Monocytes 2 % (0-10); Neutrophil 83 % (42-75); Platelet Count 162 thou/uL (130-400); Platelet Morphology Comment Appears Adequate; RBC Distribution Width 14.8 % (11.5-14.5); Red Blood Cell (RBC) Count 2.22 mill/uL (4.70-6.10); White Blood Cell (WBC) Count 12.6 thou/uL (4.8-10.8)
[2021-06-18 07:59] LABS: Base Excess (BEa) 6.1 mEq/L (-2.0 to +3.0); CO2 Tension 40.8 mmHg (35.0-45.0); Calcium, Ionized (arterial) 1.14 mmol/L (1.12-1.30); Carboxyhemoglobin (COHb) 1.2 gm% (0.0-3.0); Hemoglobin (Hb) 8.4 g/dL (14.0-18.0); O2 Tension (PaO2), arterial 136.7 mmHg (> 70.0); Potassium - ABG Lab 3.92 mmol/L (3.70-5.30); pH, Arterial 7.49 (7.35-7.45)
[2021-06-18] MEDS ORDERED: Spironolactone 100 MG TAB PO SCH (08:00)
[2021-06-18 08:14] LABS: Puncture Site RRA
[2021-06-18] MEDS ORDERED: Metolazone 2.5 MG TAB PO SCH (08:30)
[2021-06-18] MEDS: Enoxaparin Sodium 40 MG/0.4 ML SYRINGE SC SCH (08:48)
[2021-06-18] MEDS: Famotidine 20 MG TAB PER TUBE SCH (08:49)
[2021-06-18] MEDS: Hydrocortisone Sod Succ/PF 100 mg/2 ml Vial IVP SCH (08:49)
[2021-06-18] MEDS ORDERED: Albumin 25% 25 GM/100 ML BOT IVPB SCH (09:45)
[2021-06-18] MEDS: Aspirin 325 MG TAB PO SCH (11:13)
[2021-06-18] MEDS: Albumin 25% 25 GM/100 ML BOT IVPB SCH ×2 (11:52→18:00)
[2021-06-18] MEDS: Norepinephrine 8 MG/0.9% NS 250 ML IVPB SCH (12:16)
[2021-06-18] MEDS ORDERED: Vasopressin 20 UNIT, Admixture Fee 1 EACH in Sodium Chloride 0.9% 50 ML IV SCH (15:00)
[2021-06-18] MEDS ORDERED: Vasopressin 40 UNIT, Admixture Fee 1 EACH in Sodium Chloride 0.9% 100 ML IV SCH (15:15)
[2021-06-18] MEDS ORDERED: EPINEPHrine 1 MG/10 ML Abboject SYRINGE ONE (16:18)
[2021-06-18 19:03] VITALS: TEMP 99.8
[2021-06-18] MEDS ORDERED: Enoxaparin Sodium 40 MG/0.4 ML SYRINGE SC SCH (21:00)
[2021-06-22 11:04] LABS: CO2 Tension 21.2 mmHg (35.0-45.0)
== END 2021-06-18 16:24 | disposition expired | DRG 870 ==
LOC: ERS 13:57 → CCU 17:42
PROVIDERS: ADMIT Family Medicine; ATTEND Family Medicine
PROC: 3E043XZ Introduction of Vasopressor into Central Vein, Percutaneous Approach (ICD-10-PCS; principal; 2021-06-06)
PROC: 3E03329 Introduction of Other Anti-infective into Peripheral Vein, Percutaneous Approach (ICD-10-PCS; 2021-06-06)
PROC: 02HV33Z Insertion of Infusion Device into Superior Vena Cava, Percutaneous Approach (ICD-10-PCS; 2021-06-06)
PROC: B548ZZA Ultrasonography of Superior Vena Cava, Guidance (ICD-10-PCS; 2021-06-06)
PROC: 03HY32Z Insertion of Monitoring Device into Upper Artery, Percutaneous Approach (ICD-10-PCS; 2021-06-07)
PROC: 06H03DZ Insertion of Intraluminal Device into Inferior Vena Cava, Percutaneous Approach (ICD-10-PCS; 2021-06-09)
PROC: 5A1955Z Respiratory Ventilation, Greater than 96 Consecutive Hours (ICD-10-PCS; 2021-06-12)
PROC: 0BH18EZ Insertion of Endotracheal Airway into Trachea, Via Natural or Artificial Opening Endoscopic (ICD-10-PCS; 2021-06-12)
PROC: 0B9J8ZZ Drainage of Left Lower Lung Lobe, Via Natural or Artificial Opening Endoscopic (ICD-10-PCS; 2021-06-12)
PROC: 0B9C8ZZ Drainage of Right Upper Lung Lobe, Via Natural or Artificial Opening Endoscopic (ICD-10-PCS; 2021-06-12)
PROC: 0B9G8ZZ Drainage of Left Upper Lung Lobe, Via Natural or Artificial Opening Endoscopic (ICD-10-PCS; 2021-06-12)
PROC: 0B9F8ZZ Drainage of Right Lower Lung Lobe, Via Natural or Artificial Opening Endoscopic (ICD-10-PCS; 2021-06-12)
PROC: 0B918ZZ Drainage of Trachea, Via Natural or Artificial Opening Endoscopic (ICD-10-PCS; 2021-06-12)
PROC: 0DH67UZ Insertion of Feeding Device into Stomach, Via Natural or Artificial Opening (ICD-10-PCS; 2021-06-14)
PROC: 3E0G76Z Introduction of Nutritional Substance into Upper GI, Via Natural or Artificial Opening (ICD-10-PCS; 2021-06-14)
PROC: 0BH18EZ Insertion of Endotracheal Airway into Trachea, Via Natural or Artificial Opening Endoscopic (ICD-10-PCS; 2021-06-15)
PROC: 0BP1XDZ Removal of Intraluminal Device from Trachea, External Approach (ICD-10-PCS; 2021-06-15)
PROC: 8E0ZXY6 Isolation (ICD-10-PCS; 2021-06-18)
PROC: 5A12012 Performance of Cardiac Output, Single, Manual (ICD-10-PCS; 2021-06-18)
DX: A40.8 Other streptococcal sepsis (principal); R65.21 Severe sepsis with septic shock; U07.1 COVID-19; N17.0 Acute kidney failure with tubular necrosis; J12.82 Pneumonia due to coronavirus disease 2019; K72.00 Acute and subacute hepatic failure without coma; K55.039 Acute (reversible) ischemia of large intestine, extent unspecified; J96.00 Acute respiratory failure, unspecified whether with hypoxia or hypercapnia; I24.8 Other forms of acute ischemic heart disease; L03.115 Cellulitis of right lower limb; E87.0 Hyperosmolality and hypernatremia; E87.1 Hypo-osmolality and hyponatremia; L03.116 Cellulitis of left lower limb; N39.0 Urinary tract infection, site not specified; I82.411 Acute embolism and thrombosis of right femoral vein; I82.443 Acute embolism and thrombosis of tibial vein, bilateral; I82.432 Acute embolism and thrombosis of left popliteal vein; L97.819 Non-pressure chronic ulcer of other part of right lower leg with unspecified severity; M62.82 Rhabdomyolysis; I42.8 Other cardiomyopathies; D62 Acute posthemorrhagic anemia; E87.4 Mixed disorder of acid-base balance; T85.698A Other mechanical complication of other specified internal prosthetic devices, implants and grafts, initial encounter; J90 Pleural effusion, not elsewhere classified; N18.9 Chronic kidney disease, unspecified; E78.5 Hyperlipidemia, unspecified; Z96.653 Presence of artificial knee joint, bilateral; I45.10 Unspecified right bundle-branch block; R74.01 Elevation of levels of liver transaminase levels; D53.9 Nutritional anemia, unspecified; M19.90 Unspecified osteoarthritis, unspecified site; E86.9 Volume depletion, unspecified; E87.5 Hyperkalemia; K76.89 Other specified diseases of liver; Z96.622 Presence of left artificial elbow joint; Z96.621 Presence of right artificial elbow joint; I08.1 Rheumatic disorders of both mitral and tricuspid valves; Z96.1 Presence of intraocular lens; I87.2 Venous insufficiency (chronic) (peripheral); R57.0 Cardiogenic shock; E88.09 Other disorders of plasma-protein metabolism, not elsewhere classified; T46.4X5A Adverse effect of angiotensin-converting-enzyme inhibitors, initial encounter; I12.9 Hypertensive chronic kidney disease with stage 1 through stage 4 chronic kidney disease, or unspecified chronic kidney disease; K76.1 Chronic passive congestion of liver; I46.2 Cardiac arrest due to underlying cardiac condition; I49.3 Ventricular premature depolarization; Y84.8 Other medical procedures as the cause of abnormal reaction of the patient, or of later complication, without mention of misadventure at the time of the procedure; D75.839 Thrombocytosis, unspecified; D69.6 Thrombocytopenia, unspecified; I48.91 Unspecified atrial fibrillation; E87.6 Hypokalemia; R00.1 Bradycardia, unspecified; Z78.1 Physical restraint status; Z79.899 Other long term (current) drug therapy; Z79.82 Long term (current) use of aspirin; Z98.890 Other specified postprocedural states; Z90.89 Acquired absence of other organs; Z98.42 Cataract extraction status, left eye; Z98.41 Cataract extraction status, right eye; Z82.49 Family history of ischemic heart disease and other diseases of the circulatory system; Z87.891 Personal history of nicotine dependence
CPT/HCPCS: 36415; 36416; 36556; 36600; 37191; 51702; 71045; 74018; 76700; 80048; 80053; 80076; 80202; 81003; 81015; 82040; 82150; 82274; 82550; 82553; 82570; 82805; 83605; 83690; 83735; 83880; 84100; 84145; 84156; 84300; 84484; 84540; 85007; 85025; 85027; 85610; 85730; 86140; 86780; 87040; 87070; 87077; 87086; 87149; 87186; 87205; 87389; 93005; 93010; 93306; 93970; 94002; 94003; 94640; 96365; 96366; 96367; 96375; C1880; J0171; J0282; J0692; J0696; J1120; J1160; J1644; J1650; J1720; J1940; J2185; J2250; J2370; J2543; J2704; J3010; J3370; J3480; J3490; J7042; J7050; J7070; J7120; J7620; P9047; S0028; U0002